=== PATIENT | male | born 1965 | race African-American/Black ===

== ENCOUNTER → 2017-03-13 | Outpatient (CLI) | payer OTHER ==
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
== END | disposition home or self-care (01) ==
LOC: CMRI 16:31
DX: G44.89 Other headache syndrome (principal)
CPT/HCPCS: 70553; A9577

== ENCOUNTER 2017-03-23 10:40 | Emergency (ER) | payer OTHER ==
[~2017-03-23] VITALS: Ht 172.7 cm; Wt 96.6 kg
== END 2017-03-23 12:55 | disposition home or self-care (01) ==
LOC: CED 10:40
DX: R51 Headache (principal); S05.01XA Injury of conjunctiva and corneal abrasion without foreign body, right eye, initial encounter; X58.XXXA Exposure to other specified factors, initial encounter
CPT/HCPCS: 36415; 96365; 96375; 99284; J1100; J1200; J1885; J2765